=== PATIENT | female | born 1995 | race Caucasian/White ===

== ENCOUNTER 2020-05-20 10:04 | Emergency (ER) | payer OTHER, SELFPAY ==
--- NOTE | ~2020-05-20 | XR_ITS ---
EXAMINATION: XR ankle RT min 3V INDICATION: Right ankle pain TECHNIQUE: Four views of the right ankle are obtained. COMPARISON: None available FINDINGS: There is no fracture, dislocation, or subluxation. The bones, soft tissues, and joint space s are normal. IMPRESSION: 1. No acute osseous abnormality. Reviewed, dictated and finalized at location A.
[2020-05-20 10:04] VITALS: BP 179/71; PULSE 54; RESP 16; TEMP 36.4; O2SAT 99
[2020-05-20 10:15] VITALS: BP 112/75; PULSE 76; RESP 18; TEMP 36.8; O2SAT 99
--- NOTE | 2020-05-20 10:27 | ED.GENADULT ---
HPI - General Adult General Chief complaint: Extremity Injury, Lower Stated complaint: ankle pain right Time Seen by Provider: 05/20/20 10:27 Source: patient Mode of arrival: ambulatory Limitations: no limitations History of Present Illness HPI narrative: 24-year-old female patient presents to the [facility] with complaints of right ankle pain for the past week. Patient states that she has been on her feet a lot doing a lot of chores at home, push mowing the yard. 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 Patient does have history of arthritis and has had her hip replaced before in the past. Patient states she has been trying to stay off it is much as possible as well as got an ankle compression stocking to put on the area and is been taking ibuprofen and icing it. Patient states that the pain started on the lateral side but not has now moved to the medial side of her right ankle. Denies any specific injury that she can remember. Patient states it only hurts when she is walking on it but does feel better when she is resting it. Related Data Home Medications Medication Instructions Recorded [facility] 1 tablet PO DAILY 05/20/20 05/20/20 [] Allergies Allergy/AdvReac Type Severity Reaction Status Date / Time No Known Allergies Allergy Verified 05/20/20 10:24 Review of Systems Review of Systems: Narrative: CONSTITUTIONAL: Denies fever, chills, or sweats. EYES: Denies visual changes, redness, or discharge. ENT: Denies rhinorrhea, congestion, sore throat, or otalgia. CARDIOVASCULAR: Denies chest pain, palpitations, or edema. RESPIRATORY: Denies cough or dyspnea. GASTROINTESTINAL: Denies abdominal pain, nausea, vomiting, or diarrhea. GENITOURINARY: Denies dysuria or hematuria. SKIN: Denies rash or itching. MUSCULOSKELETAL: Denies back pain, joint pain, or myalgia. Positive right ankle pain x1 week NEUROLOGIC: Denies headache, numbness, or weakness. PSYCHIATRIC: Denies anxiety or depression. [facility] Past Medical History Medical History (Updated 05/20/20 @ 10:45 by GENE Rogers) Arthritis Surgical History Surgical History (Updated 05/20/20 @ 10:28 by GENE Rogers) History of left hip replacement Comments At the time of my signature I agree with nursing past medical history, surgical, social, and family history. There is no relevant family history pertinent to the presenting complaint. Exam Narrative: Exam Narrative: GENERAL: Well-appearing, well-nourished, and in no acute distress. HEAD: Normocephalic, atraumatic. EYES: PERRLA and EOMI. ENT: Nares clear, no rhinorrhea or epistaxis. Mucous membranes moist. NECK: Supple. No lymphadenopathy CHEST: Clear to auscultation. No respiratory distress. HEART: Regular rate and rhythm. No murmur heard. Normal peripheral pulses. ABDOMEN: Soft, nontender, nondistended, normal active bowel sounds. EXTREMITIES: Patient is able to bear weight and ambulate but has increased pain to the right ankle with ambulation. The R ankle is without obvious asymmetry or deformity when compared to the L ankle. Patient can flex/extend, invert/merrill. Patient does have increased pain with inversion of right ankle. No obvious surface trauma, ecchymosis, or soft tissue swelling. No body tenderness to palpation over the medial or lateral malleolus. Patient does state that the pain does start to from the lateral malleolus and extends across the dorsal part of the ankle to the medial malleolus but no pain to palpation of this area. Anterior talofibular ligament, posterior talofibular ligament, calcaneofibular ligament nontender and without swelling. No tenderness or deformity of the midfoot or over the proximal fifth metatarsal. Good DP and posterior tibial pulses and sensation to light touch normal. Talar tilt test is negative for ligament laxity to valgus or vargus stress. Negative anterior celestine
[2020-05-20 10:32] VITALS: BP 140/78; PULSE 64; RESP 16; TEMP 36.7; O2SAT 98
== END 2020-05-20 10:50 | disposition home or self-care (01) ==
PROVIDERS: Emergency Provider Nurse Practitioner Family; PCP Family Medicine
DX: S93.401A Sprain of unspecified ligament of right ankle, initial encounter (principal); M19.90 Unspecified osteoarthritis, unspecified site; Z96.642 Presence of left artificial hip joint; X58.XXXA Exposure to other specified factors, initial encounter
CPT/HCPCS: 73610; 99213; G0463